=== PATIENT | female | born 1980 | race Two or more races ===

== ENCOUNTER 2023-06-22 16:49 | Emergency (ER) | payer BC ==
[~2023-06-22] VITALS: Ht 157.5 cm; Wt 67.1 kg
[2023-06-22 18:01] LABS: BASOPHILS # (AUTO) 0.1 K/UL (0.0-0.2); BASOPHILS % (AUTO) 1.5 % (0.0-2.0); EOSINOPHILS # (AUTO) 0.1 K/uL (0.0-0.7); EOSINOPHILS % (AUTO) 2.5 % (0.0-7.0); HEMATOCRIT 27.7 % (31.2-41.9); HEMOGLOBIN 8.4 g/dL (10.9-14.3); LYMPHOCYTES # (AUTO) 0.9 K/uL (0.8-4.8); LYMPHOCYTES % (AUTO) 15.4 % (20.5-51.5); MEAN CORPUSCULAR HEMOGLOBIN 18.3 uug (24.7-32.8); MEAN CORPUSCULAR HGB CONC 30 g/dL (32.3-35.6); MEAN CORPUSCULAR VOLUME 60.1 fL (75.5-95.3); MONOCYTES # (AUTO) 0.6 K/uL (0.1-1.30); MONOCYTES % (AUTO) 10.3 % (0.0-11.0); NEUTROPHILS # (AUTO) 3.9 K/uL (1.8-8.9); NEUTROPHILS % (AUTO) 70.3 % (38.5-71.5); PLATELET COUNT (AUTO) 443 K/uL (179-408); RED CELL DISTRIBUTION WIDTH 21.4 % (12.3-17.7); WHITE BLOOD COUNT (AUTO) 5.6 K/uL (3.8-11.8)
[2023-06-22 18:07] LABS: DIFFERENTIAL COMMENT 1
[2023-06-22 18:24] LABS: CALCIUM 8.6 mg/dL (8.5-10.1); CARBON DIOXIDE 24 mmol/L (21-32); CHLORIDE 97 mmol/L (98-107); CREATININE 0.8 mg/dL (0.6-1.3); GLUCOSE 135 mg/dL (74-106); SODIUM SERUM 132 mmol/L (136-145); UREA NITROGEN, BLOOD 11 mg/dL (7-18)
[2023-06-22 18:40] LABS: ALANINE AMINOTRANSFERASE 21 U/L (14-59); ALBUMIN 3.6 g/dL (3.4-5.0); ALKALINE PHOSPHATASE 60 U/L (50-136); ASPARTATE AMINOTRANSFERASE 12 U/L (15-37); BILIRUBIN,DIRECT 0.1 mg/dL (0.0-0.2); BILIRUBIN,TOTAL 0.4 mg/dL (0.2-1.0); NT-PRO BNP 37 pg/mL (0-125); TOTAL PROTEIN, SERUM 7.3 g/dL (6.4-8.2)
[2023-06-22 21:44] LABS: *URINE HCG, QUAL NEGATIVE (NEGATIVE)
[2023-06-22] MEDS ORDERED: ONDA4TAB5 PO (23:23)
[2023-06-22] MEDS ORDERED: HYDR-3980 PO (23:23)
[2023-06-22] MEDS ORDERED: LORA0.5T48 PO (23:23)
[2023-06-22] MEDS ORDERED: HYDROCODONE/APAP 5-325MG TABLET ONE (23:29)
[2023-06-22] MEDS ORDERED: HYDROCODONE/APAP 5-325MG TABLET PO ONE (23:30)
[2023-06-22] MEDS ORDERED: ONDANSETRON ODT 4 MG TAB.RAPDIS SL ONE (23:30)
[2023-06-22 23:55] VITALS: BP 126/84; TEMP 98.1; O2SAT 98
== END 2023-06-23 00:05 | disposition home or self-care (01) ==
LOC: ER 16:49
DX: F45.8 Other somatoform disorders (principal); F41.0 Panic disorder [episodic paroxysmal anxiety]; R10.2 Pelvic and perineal pain; E11.9 Type 2 diabetes mellitus without complications; Z79.899 Other long term (current) drug therapy; Z20.822 Contact with and (suspected) exposure to COVID-19
CPT/HCPCS: 36415; 71045; 73020; 84484; 84703; 85025; 93005; A4606; A4663